=== PATIENT | female | born 1990 | race Caucasian/White ===

== ENCOUNTER 2023-10-23 19:23 | Emergency (ER) | payer OTHER ==
[2023-10-23 19:43] VITALS: O2SAT 100
[2023-10-23 20:50] LABS: BILIRUBIN,URINE NEGATIVE (NEGATIVE); GLUCOSE, URINE (UA) NEGATIVE (NEGATIVE); KETONES,URINE (UA) NEGATIVE (NEGATIVE); LEUKOCYTE ESTERASE, URINE NEGATIVE (NEGATIVE); NITRITE,URINE NEGATIVE (NEGATIVE); OCCULT BLOOD,URINE TRACE-INTA (NEGATIVE); PH,URINE 5.5 PH (5.0-7.5); PROTEIN,URINE NEGATIVE (NEGATIVE); UROBILINOGEN,URINE 0.2 (NORMAL) E.U./dL (NORMAL)
[2023-10-23 20:59] LABS: CLARITY,URINE CLEAR (CLEAR)
[2023-10-23 21:00] LABS: HCG UR QUAL NEGATIVE
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
[2023-10-23] MEDS ORDERED: oxyCODONE/ACET 5/325 Prepack 4 PO STA (21:33)
--- NOTE | 2023-10-23 21:46 | XRAY Report ---
PROCEDURE: Lumbar Spine 2 View INDICATIONS: Trauma TECHNIQUE: 3 views of the lumbar spine were acquired. COMPARISON: None. FINDINGS: Bones: 5 [id number] vertebrae are present. There is normal bony alignment. No vertebral body compression fractures. No suspicious bony lesions. Soft tissues: Overlying bowel gas pattern is normal. No suspicious soft tissue calcifications. IMPRESSION: No visualized acute fracture or dislocation. However, occult injury cannot be excluded. Recommend short interval imaging follow-up in 7-10 days as clinically indicated for additional evalua tion. Reviewed by: Tiffani Ellis MD on 10/23/2023 9:45 PM PST Approved by: Tiffani Ellis MD on 10/23/2023 9:45 PM PST Station ID: [id number]
[2023-10-23 21:58] VITALS: BP 130/88
== END 2023-10-23 21:54 | disposition home or self-care (01) ==
LOC: ED 19:23
DX: M54.9 Dorsalgia, unspecified (principal)
CPT/HCPCS: 81001; 81003; 81025; 87086; 99284